=== PATIENT | female | born 1975 | race Caucasian/White ===

== ENCOUNTER 2019-03-07 04:14 | Inpatient (IN) | payer OTHER, MEDICAID ==
[2019-03-07 04:36] LABS: ADD MAN DIFF? NO
[2019-03-07 04:41] LABS: BASOPHIL # 0.1 10^3/ul (0.0-0.1); BASOPHILS % 0.8 % (0.0-2.0); EOSINOPHILS # 0.2 10^3/ul (0.0-0.5); EOSINOPHILS % 2.7 % (0.0-7.0); HEMOGLOBIN 8.9 g/dl (12.0-16.0); LYMPHOCYTES % 29.9 % (15.0-51.0); MEAN CORPUSCULAR HEMOGLOBIN 21.8 pg (29.0-33.0); MEAN CORPUSCULAR HGB CONC 29.7 g/dl (32.0-37.0); MEAN CORPUSCULAR VOLUME 73.5 fl (82.0-101.0); MEAN PLATELET VOLUME 11.5 fl (7.4-10.4); MONOCYTE # 0.4 10^3/ul (0.3-0.9); MONOCYTES % 5.6 % (0.0-11.0); NEUTROPHILS % 60.5 % (39.0-77.0); NUCLEATED RED BLOOD CELLS% 0.3 /100WBC (0.0-0.0); PLATELET COUNT 210 10^3/UL (140-415); RED BLOOD COUNT 4.08 10^6/ul (4.20-5.40)
[2019-03-07 04:41] LABS: WHITE BLOOD COUNT 6.6 10^3/ul (4.8-10.8)
[2019-03-07] MEDS ORDERED: MAGNESIUM SULFATE 20 GM/500 ML 500 ML IV (04:44)
[2019-03-07 04:46] LABS: ADD UMIC YES; UR ASCORBIC ACID NEGATIVE (NEGATIVE); UR BILIRUBIN (Dip) NEGATIVE (NEGATIVE); UR BLOOD (Dip) 1+ mg/dL (NEGATIVE); UR CLARITY CLEAR (CLEAR); UR COLOR YELLOW (YELLOW); UR GLUCOSE (Dip) NEGATIVE (NEGATIVE); UR KETONES (Dip) NEGATIVE (NEGATIVE); UR LEUKOCYTE ESTERASE (Dip) TRACE Leu/ul (NEGATIVE); UR NITRITE (Dip) NEGATIVE (NEGATIVE); UR RBC 3 /HPF (0-5); UR SPECIFIC GRAVITY (Dip) 1.014 (1.003-1.030); UR TOTAL PROTEIN (Dip) 2+ mg/dl (NEGATIVE); UR UROBILINOGEN (Dip) NEGATIVE (NEGATIVE); UR WBC 14 /HPF (0-5)
[2019-03-07 04:59] LABS: ALANINE AMINOTRANSFERASE 29 IU/L (13-69); ALBUMIN/GLOBULIN RATIO 0.96; ALKALINE PHOSPHATASE 105 IU/L (42-121); ANION GAP 4 (5-13); ASPARTATE AMINO TRANSFERASE 21 IU/L (15-46); BILIRUBIN,INDIRECT 0.3 mg/dl (0-1.1); BILIRUBIN,TOTAL 0.3 mg/dl (0.2-1.3); BLOOD UREA NITROGEN 14 mg/dl (7-20); CALCIUM 8.4 mg/dl (8.4-10.2); CARBON DIOXIDE 24 mmol/L (21-31); CHLORIDE 108 mmol/L (97-110); CREATININE 0.71 mg/dl (0.44-1.00); Estimated GFR > 60 mL/min (>60); GLUCOSE 78 mg/dl (70-220); SODIUM 136 mmol/L (135-144); TOTAL PROTEIN 6.1 g/dl (6.1-8.1); URIC ACID 6.2 mg/dl (3.1-7.9)
[2019-03-07 05:01] LABS: INR 0.83; PROTIME 11.5 Sec (11.9-14.9); PT RATIO 0.9
[2019-03-07 05:02] LABS: PARTIAL THROMBOPLASTIN TIME 26.4 Sec (23.0-35.0)
[2019-03-07] MEDS ORDERED: LABETALOL HCL 20MG INJ IV ×2 (05:30→18:00)
[2019-03-07] MEDS: hydrALAzine 20 MG INJ IV (05:30)
[2019-03-07] MEDS ORDERED: hydrALAzine 20 MG INJ IV ×2 (05:30→18:00)
[2019-03-07] MEDS: LACTATED RINGER'S 1,000 ML IV ×2 (05:39→20:44)
[2019-03-07] MEDS: MAGNESIUM SULFATE 4 GM/100 ML 100 ML IV (05:43)
[2019-03-07] MEDS: BETAMET NA PHOS/AC(6 MG/ML) 2 ML INJ SYG IM (05:49)
[2019-03-07] MEDS: MAGNESIUM SULFATE 20 GM/500 ML 500 ML IV (06:20)
[2019-03-07] MEDS: DEXTROSE 5%-LR 1,000 ML IV (08:04)
[2019-03-07] MEDS ORDERED: PRENATAL VITAMIN PO (09:00)
[2019-03-07] MEDS: LABETALOL HCL 20MG INJ IV (09:47)
[2019-03-07] MEDS: ACETAMINOPHEN 325 MG TAB PO (14:52)
[2019-03-07] MEDS ORDERED: CEFAZOLIN 2 GM/50 ML (PMX) 50 ML IVPB ×2 (16:30→16:31)
[2019-03-07] MEDS ORDERED: OXYTOCIN 30 UNITS/LR 500 ML IV (16:30)
[2019-03-07] MEDS ORDERED: morphine SULFATE/PF (10 MG/10 ML) INJ (16:58)
[2019-03-07] MEDS ORDERED: MIDAZOLAM 1 MG/ML 2 ML INJ ×3 (17:19→17:20)
[2019-03-07] MEDS ORDERED: ONDANSETRON 4 MG INJ (17:21)
[2019-03-07] MEDS ORDERED: OXYTOCIN 10 UNIT INJ ×2 (17:23)
[2019-03-07] MEDS ORDERED: METOCLOPRAMIDE 10 MG INJ (17:33)
[2019-03-07] MEDS: CEFAZOLIN 2 GM/50 ML (PMX) 50 ML IVPB (18:00)
[2019-03-07] MEDS ORDERED: METHYLERGONOVINE 0.2 MG INJ IM (18:00)
[2019-03-07] MEDS ORDERED: DIPHENHYDRAMINE 50 MG INJ IV ×2 (18:00)
[2019-03-07] MEDS: ONDANSETRON 4 MG INJ IV ×2 (18:00→20:08)
[2019-03-07] MEDS ORDERED: NALOXONE (0.4 MG/ML) INJ IV (18:00)
[2019-03-07] MEDS ORDERED: CA GLUCONATE (GM) 10% 10ML INJ IV (18:00)
[2019-03-07] MEDS ORDERED: OXYCODONE/ACETAMINOPHEN (5/325) TAB PO (18:00)
[2019-03-07] MEDS ORDERED: MISOPROSTOL 200 MCG TAB PR (18:00)
[2019-03-07] MEDS ORDERED: MIDAZOLAM 1 MG/ML 2 ML INJ IV (18:00)
[2019-03-07] MEDS: IBUPROFEN 600 MG TAB PO (18:00)
[2019-03-07] MEDS ORDERED: CARBOPROST 250 MCG INJ IM (18:00)
[2019-03-07] MEDS ORDERED: HYDROmorphONE 0.5 MG/0.5 ML SYG IV ×2 (18:00)
[2019-03-07] MEDS ORDERED: NALBUPHINE HCL (10 MG/1 ML) INJ IV (18:00)
[2019-03-07] MEDS ORDERED: NACL 0.9% 3 ML SYG IV ×2 (18:00)
[2019-03-07] MEDS ORDERED: MEPERIDINE 25 MG INJ IV (18:00)
[2019-03-07 18:32] LABS: MAGNESIUM 4.6 mg/dl (1.7-2.5)
[2019-03-07 19:25] LABS: HEPATITIS B SURFACE ANTIGEN NEGATIVE (NEGATIVE)
[2019-03-07 19:35] LABS: HIV 1&2 ANTIBODY NEGATIVE (NEGATIVE)
[2019-03-07] MEDS: KETOROLAC 30 MG INJ IV (20:01)
[2019-03-08] MEDS: OXYTOCIN 30 UNITS/LR 500 ML IV ×2 (00:40→08:21)
[2019-03-08] MEDS: CEFAZOLIN 2 GM/50 ML (PMX) 50 ML IVPB ×3 (00:48→18:43)
[2019-03-08 01:25] LABS: MAGNESIUM 6.8 mg/dl (1.7-2.5)
[2019-03-08] MEDS: MAGNESIUM SULFATE 20 GM/500 ML 500 ML IV ×3 (03:52→15:55)
[2019-03-08] MEDS: KETOROLAC 30 MG INJ IV ×2 (04:22→15:56)
[2019-03-08] MEDS: IBUPROFEN 600 MG TAB PO ×4 (06:00→18:00)
[2019-03-08 06:23] LABS: ADD MAN DIFF? NO
[2019-03-08 06:25] LABS: WHITE BLOOD COUNT 13.7 10^3/ul (4.8-10.8)
[2019-03-08 06:25] LABS: BASOPHILS % 0.1 % (0.0-2.0); HEMATOCRIT 32.3 % (37.0-47.0); HEMOGLOBIN 9.5 g/dl (12.0-16.0); LYMPHOCYTES # 0.9 10^3/ul (0.8-2.9); LYMPHOCYTES % 6.4 % (15.0-51.0); MEAN CORPUSCULAR HEMOGLOBIN 21.8 pg (29.0-33.0); MEAN CORPUSCULAR HGB CONC 29.4 g/dl (32.0-37.0); MEAN CORPUSCULAR VOLUME 74.1 fl (82.0-101.0); MEAN PLATELET VOLUME 11.8 fl (7.4-10.4); MONOCYTE # 0.5 10^3/ul (0.3-0.9); MONOCYTES % 3.7 % (0.0-11.0); NEUTROPHIL # 12.2 10^3/ul (1.6-7.5); NEUTROPHILS % 89.4 % (39.0-77.0); PLATELET COUNT 230 10^3/UL (140-415); RED BLOOD COUNT 4.36 10^6/ul (4.20-5.40)
[2019-03-08 06:51] LABS: MAGNESIUM 6.7 mg/dl (1.7-2.5)
[2019-03-08 07:00] LABS: ALANINE AMINOTRANSFERASE 20 IU/L (13-69); ALBUMIN 3.2 g/dl (3.3-4.9); ALKALINE PHOSPHATASE 122 IU/L (42-121); ASPARTATE AMINO TRANSFERASE 27 IU/L (15-46); BILIRUBIN,INDIRECT 0.3 mg/dl (0-1.1); BILIRUBIN,TOTAL 0.3 mg/dl (0.2-1.3); TOTAL PROTEIN 6.3 g/dl (6.1-8.1)
[2019-03-08] MEDS: LANOLIN HPA 1 PKT TOP (08:21)
[2019-03-08] MEDS: LABETALOL 200 MG TAB PO ×2 (12:22→20:55)
[2019-03-08 13:01] LABS: MAGNESIUM 7.1 mg/dl (1.7-2.5)
[2019-03-08] MEDS: LACTATED RINGER'S 1,000 ML IV (14:34)
[2019-03-08 20:29] LABS: RAPID PLASMA REAGIN NONREACTIVE (NR)
[2019-03-08] MEDS: OXYCODONE/ACETAMINOPHEN (5/325) TAB PO (20:55)
[2019-03-09] MEDS: IBUPROFEN 600 MG TAB PO ×4 (00:19→18:12)
[2019-03-09] MEDS: OXYCODONE/ACETAMINOPHEN (5/325) TAB PO (08:18)
[2019-03-09 08:25] LABS: ADD MAN DIFF? NO
[2019-03-09 08:29] LABS: BASOPHILS % 0.5 % (0.0-2.0); EOSINOPHILS # 0.1 10^3/ul (0.0-0.5); EOSINOPHILS % 1.2 % (0.0-7.0); HEMATOCRIT 25.9 % (37.0-47.0); HEMOGLOBIN 7.7 g/dl (12.0-16.0); LYMPHOCYTES # 1.6 10^3/ul (0.8-2.9); LYMPHOCYTES % 18.4 % (15.0-51.0); MEAN CORPUSCULAR HEMOGLOBIN 22.1 pg (29.0-33.0); MEAN CORPUSCULAR HGB CONC 29.7 g/dl (32.0-37.0); MEAN CORPUSCULAR VOLUME 74.2 fl (82.0-101.0); MEAN PLATELET VOLUME 11.5 fl (7.4-10.4); MONOCYTE # 0.6 10^3/ul (0.3-0.9); MONOCYTES % 6.7 % (0.0-11.0); NEUTROPHIL # 6.2 10^3/ul (1.6-7.5); NEUTROPHILS % 72.7 % (39.0-77.0); NUCLEATED RED BLOOD CELLS% 0.2 /100WBC (0.0-0.0); PLATELET COUNT 189 10^3/UL (140-415); RED BLOOD COUNT 3.49 10^6/ul (4.20-5.40)
[2019-03-09 08:29] LABS: WHITE BLOOD COUNT 8.5 10^3/ul (4.8-10.8)
[2019-03-09 08:54] LABS: ALANINE AMINOTRANSFERASE 24 IU/L (13-69); ALBUMIN 2.8 g/dl (3.3-4.9); ALBUMIN/GLOBULIN RATIO 1.07; ALKALINE PHOSPHATASE 102 IU/L (42-121); ANION GAP 3 (5-13); ASPARTATE AMINO TRANSFERASE 22 IU/L (15-46); BILIRUBIN,INDIRECT 0.4 mg/dl (0-1.1); BILIRUBIN,TOTAL 0.4 mg/dl (0.2-1.3); BLOOD UREA NITROGEN 14 mg/dl (7-20); CALCIUM 6.2 mg/dl (8.4-10.2); CARBON DIOXIDE 28 mmol/L (21-31); CHLORIDE 100 mmol/L (97-110); CREATININE 0.86 mg/dl (0.44-1.00); Estimated GFR > 60 mL/min (>60); GLUCOSE 72 mg/dl (70-220); POTASSIUM 4.4 mmol/L (3.5-5.1); SODIUM 131 mmol/L (135-144); TOTAL PROTEIN 5.4 g/dl (6.1-8.1)
[2019-03-09 08:55] LABS: MAGNESIUM 3.6 mg/dl (1.7-2.5)
[2019-03-09] MEDS: LABETALOL 200 MG TAB PO ×2 (09:31→21:12)
[2019-03-09 13:41] LABS: RUBELLA ANTIBODY - IGM <20.00 AU/mL
[2019-03-09 19:17] LABS: RUBELLA ANTIBODY - IGG 6.29 index
[2019-03-09] MEDS: FERROUS SULFATE (EC) 325 MG TAB PO (21:12)
[2019-03-10] MEDS: IBUPROFEN 600 MG TAB PO ×5 (00:48→23:33)
[2019-03-10 08:21] LABS: ADD MAN DIFF? NO
[2019-03-10 08:30] LABS: BASOPHIL # 0.1 10^3/ul (0.0-0.1); BASOPHILS % 0.6 % (0.0-2.0); EOSINOPHILS # 0.2 10^3/ul (0.0-0.5); EOSINOPHILS % 1.9 % (0.0-7.0); HEMATOCRIT 27.9 % (37.0-47.0); HEMOGLOBIN 8.3 g/dl (12.0-16.0); LYMPHOCYTES # 1.6 10^3/ul (0.8-2.9); LYMPHOCYTES % 18.1 % (15.0-51.0); MEAN CORPUSCULAR HGB CONC 29.7 g/dl (32.0-37.0); MEAN PLATELET VOLUME 11.2 fl (7.4-10.4); MONOCYTE # 0.5 10^3/ul (0.3-0.9); MONOCYTES % 5.6 % (0.0-11.0); NEUTROPHIL # 6.3 10^3/ul (1.6-7.5); NEUTROPHILS % 72.6 % (39.0-77.0); NUCLEATED RED BLOOD CELLS% 0.3 /100WBC (0.0-0.0); PLATELET COUNT 207 10^3/UL (140-415); RED BLOOD COUNT 3.77 10^6/ul (4.20-5.40); RED CELL DISTRIBUTION WIDTH 17.4 % (11.5-14.5)
[2019-03-10 08:30] LABS: WHITE BLOOD COUNT 8.6 10^3/ul (4.8-10.8)
[2019-03-10] MEDS: LABETALOL 200 MG TAB PO ×2 (09:00→20:50)
[2019-03-10] MEDS: FERROUS SULFATE (EC) 325 MG TAB PO ×2 (09:15→20:50)
[2019-03-10] MEDS: NIFEdipine (XL) 30 MG TAB PO (23:33)
[2019-03-11] MEDS: IBUPROFEN 600 MG TAB PO ×3 (05:48→17:25)
[2019-03-11] MEDS: LABETALOL 200 MG TAB PO ×2 (08:49→21:14)
[2019-03-11] MEDS: FERROUS SULFATE (EC) 325 MG TAB PO ×2 (08:50→21:14)
[2019-03-11] MEDS ORDERED: ACETAMINOPHEN 325 MG TAB ×2 (21:11)
[2019-03-11 22:16] LABS: ADD MAN DIFF? NO
[2019-03-11 22:23] LABS: BASOPHIL # 0.1 10^3/ul (0.0-0.1); BASOPHILS % 0.8 % (0.0-2.0); EOSINOPHILS # 0.2 10^3/ul (0.0-0.5); EOSINOPHILS % 2.5 % (0.0-7.0); HEMOGLOBIN 9.3 g/dl (12.0-16.0); LYMPHOCYTES # 1.6 10^3/ul (0.8-2.9); LYMPHOCYTES % 22.8 % (15.0-51.0); MEAN CORPUSCULAR HEMOGLOBIN 22.1 pg (29.0-33.0); MEAN CORPUSCULAR HGB CONC 29.1 g/dl (32.0-37.0); MEAN CORPUSCULAR VOLUME 76.2 fl (82.0-101.0); MEAN PLATELET VOLUME 11.2 fl (7.4-10.4); MONOCYTE # 0.3 10^3/ul (0.3-0.9); MONOCYTES % 3.9 % (0.0-11.0); NEUTROPHIL # 4.9 10^3/ul (1.6-7.5); NEUTROPHILS % 68.9 % (39.0-77.0); NUCLEATED RED BLOOD CELLS # 0.1 10^3/ul (0.0-0.0); NUCLEATED RED BLOOD CELLS% 0.8 /100WBC (0.0-0.0); PLATELET COUNT 244 10^3/UL (140-415); RED CELL DISTRIBUTION WIDTH 18.2 % (11.5-14.5)
[2019-03-11 22:23] LABS: WHITE BLOOD COUNT 7.2 10^3/ul (4.8-10.8)
[2019-03-11 22:42] LABS: ALANINE AMINOTRANSFERASE 47 IU/L (13-69); ALBUMIN 3.7 g/dl (3.3-4.9); ALBUMIN/GLOBULIN RATIO 1.08; ALKALINE PHOSPHATASE 105 IU/L (42-121); ANION GAP 7 (5-13); ASPARTATE AMINO TRANSFERASE 35 IU/L (15-46); BILIRUBIN,INDIRECT 0.5 mg/dl (0-1.1); BILIRUBIN,TOTAL 0.5 mg/dl (0.2-1.3); BLOOD UREA NITROGEN 11 mg/dl (7-20); CALCIUM 8.9 mg/dl (8.4-10.2); CARBON DIOXIDE 26 mmol/L (21-31); CHLORIDE 104 mmol/L (97-110); CREATININE 0.73 mg/dl (0.44-1.00); Estimated GFR > 60 mL/min (>60); GLUCOSE 89 mg/dl (70-220); POTASSIUM 4.3 mmol/L (3.5-5.1); SODIUM 137 mmol/L (135-144); TOTAL PROTEIN 7.1 g/dl (6.1-8.1); URIC ACID 5.1 mg/dl (3.1-7.9)
[2019-03-11 22:44] LABS: INR 0.85; PROTIME 11.7 Sec (11.9-14.9); PT RATIO 0.9
[2019-03-11 22:45] LABS: PARTIAL THROMBOPLASTIN TIME 23.9 Sec (23.0-35.0)
[2019-03-11 23:58] LABS: ADD UMIC YES; UR ASCORBIC ACID 40 mg/dL (NEGATIVE); UR BACTERIA FEW /HPF (NONE SEEN); UR BILIRUBIN (Dip) NEGATIVE (NEGATIVE); UR BLOOD (Dip) NEGATIVE (NEGATIVE); UR CLARITY CLEAR (CLEAR); UR COLOR STRAW (YELLOW); UR GLUCOSE (Dip) NEGATIVE (NEGATIVE); UR KETONES (Dip) NEGATIVE (NEGATIVE); UR LEUKOCYTE ESTERASE (Dip) TRACE Leu/ul (NEGATIVE); UR NITRITE (Dip) NEGATIVE (NEGATIVE); UR NONSQUAMOUS EPITHELIAL CELL 5 /HPF (NONE SEEN); UR RBC 2 /HPF (0-5); UR SPECIFIC GRAVITY (Dip) 1.009 (1.003-1.030); UR TOTAL PROTEIN (Dip) 1+ mg/dl (NEGATIVE); UR UROBILINOGEN (Dip) NEGATIVE (NEGATIVE); UR WBC 7 /HPF (0-5)
[2019-03-12] MEDS: IBUPROFEN 600 MG TAB PO ×4 (00:20→18:00)
[2019-03-12] MEDS: ACETAMINOPHEN 325 MG TAB PO ×2 (02:08→20:55)
[2019-03-12] MEDS: FERROUS SULFATE (EC) 325 MG TAB PO ×2 (09:29→20:53)
[2019-03-12] MEDS: LABETALOL 200 MG TAB PO ×2 (09:30→20:53)
[2019-03-12] MEDS: NIFEdipine (XL) 30 MG TAB PO ×2 (10:42→20:55)
[2019-03-13] MEDS: IBUPROFEN 600 MG TAB PO ×4 (06:00→17:22)
[2019-03-13 08:17] LABS: HDL CHOLESTEROL 84 mg/dl (34-88); LDL CHOLESTEROL,CALCULATED 126 mg/dl; TRIGLYCERIDES 251 mg/dl (0-149)
[2019-03-13 08:17] LABS: CHOLESTEROL 260 mg/dl (100-200)
[2019-03-13] MEDS: NIFEdipine (XL) 30 MG TAB PO (09:23)
[2019-03-13] MEDS: LABETALOL 200 MG TAB PO (09:23)
[2019-03-13] MEDS: FERROUS SULFATE (EC) 325 MG TAB PO (09:23)
== END 2019-03-13 18:47 | disposition home or self-care (01) | DRG 788 ==
LOC: OBT 04:14 → L-D 04:16 → OBT 04:45 → L-D 04:45 → PP1 20:39
PROC: 10D00Z1 Extraction of Products of Conception, Low, Open Approach (ICD-10-PCS; principal; 2019-03-07 17:00)
DX: O14.14 Severe pre-eclampsia complicating childbirth (principal); O34.219 Maternal care for unspecified type scar from previous cesarean delivery; O77.0 Labor and delivery complicated by meconium in amniotic fluid; O45.93 Premature separation of placenta, unspecified, third trimester; O76 Abnormality in fetal heart rate and rhythm complicating labor and delivery; Z37.0 Single live birth; Z3A.31 31 weeks gestation of pregnancy
CPT/HCPCS: 76705; 76815; 76818; 80053; 80061; 80076; 81001; 83735; 84560; 85025; 85384; 85610; 85730; 86592; 86703; 86762; 86850; 86900; 86901; 86920; 87340; 88307; 93005; 93306; 99464